=== PATIENT | female | born 1985 | race Caucasian/White ===

== ENCOUNTER 2016-12-22 12:37 | Inpatient (IN) | payer OTHER, MEDICAID ==
[~2016-12-22] VITALS: Ht 165.1 cm; Wt 73.6 kg
[~2016-12-22 12:37] MED LIST: CLOZ100 PO; PREN1TAB80 PO
[2016-12-22 13:11] VITALS: BP 122/81
[2016-12-22] MEDS ORDERED: PREN-147 PO (15:54)
[2016-12-22 16:20] VITALS: BP 141/89
[2016-12-22] MEDS: HALOPERIDOL 5 MG TABLET PO PRN (16:25)
[2016-12-23 05:13] VITALS: BP 116/70
[2016-12-23 06:37] LABS: BASOPHILS % (AUTO) 0.4 % (0.0-2.0); EOSINOPHILS % (AUTO) 0.2 % (1.0-6.0); HEMATOCRIT 37.6 % (36-46); HEMOGLOBIN 12.4 g/dL (12.0-16.0); LYMPHOCYTES # (AUTO) 1.8 K/uL (1.0-4.8); LYMPHOCYTES % (AUTO) 23.3 % (22.0-44.0); MEAN CORPUSCULAR HEMOGLOBIN 27.6 pg (26.0-34.0); MEAN CORPUSCULAR VOLUME 84 fL (80-100); MONOCYTES # (AUTO) 0.5 K/uL (0.1-1.0); MONOCYTES % (AUTO) 6.3 % (2.0-9.0); NEUTROPHILS # (AUTO) 5.4 K/uL (1.8-7.7); NEUTROPHILS % (AUTO) 69.8 % (40.0-70.0); PLATELET COUNT (AUTO) 252 K/uL (150-450); RED BLOOD CELL COUNT(AUTO) 4.49 MIL/uL (4.00-5.20); RED CELL DISTRIBUTION WIDTH 13.7 % (11.5-14.5); WHITE BLOOD COUNT (AUTO) 7.7 K/uL (4.5-11.0)
[2016-12-23 07:12] LABS: ALANINE AMINOTRANSFERASE 34 U/L (12-78); ALBUMIN 2.7 g/dL (3.4-5.0); ANION GAP 9 mmol/L (8-16); ASPARTATE AMINOTRANSFERASE 19 U/L (15-37); BILIRUBIN,TOTAL 0.3 mg/dL (0.1-1.0); CALCIUM, TOTAL 8.6 mg/dL (8.8-10.5); CARBON DIOXIDE 24 mmol/L (22-29); CHLORIDE 103 mmol/L (98-107); CHOL/HDL RATIO 2.5 (3.9-5.7); GLOMERULAR FILTR. RATE CALC > 60 mL/min (>60); POTASSIUM 3.3 mmol/L (3.5-5.1); SODIUM SERUM 136 mmol/L (136-145); THYROID STIMULATING HORMONE 3.18 uIU/mL (0.36-3.74); TOTAL PROTEIN, SERUM 6.6 g/dL (6.4-8.2); UREA NITROGEN, BLOOD 7 mg/dL (7-18)
[2016-12-23 08:46] VITALS: BP 120/82
[2016-12-23] MEDS: HALOPERIDOL 5 MG TABLET PO PRN ×2 (10:00→21:03)
[2016-12-23] MEDS ORDERED: BENZOCAINE/MENTHOL LOZENGE MM PRN (10:30)
[2016-12-23] MEDS ORDERED: LOPERAMIDE HCL 2 MG CAPSULE PO PRN (10:30)
[2016-12-23] MEDS ORDERED: BENZOCAINE/MENTHOL LOZENGE [8 LOZENGES/PACKET] MM PRN (10:30)
[2016-12-23] MEDS ORDERED: ONDANSETRON HCL 4 MG TABLET PO PRN (10:30)
[2016-12-23] MEDS ORDERED: PETROLATUM,WHITE 71 GM JELLY TP PRN (10:30)
[2016-12-23] MEDS ORDERED: CloNIDine HCL 0.1 MG TABLET PO PRN (10:30)
[2016-12-23] MEDS ORDERED: POTASSIUM CHLORIDE 20 MEQ ER TABLET PO ONE (10:30)
[2016-12-23] MEDS ORDERED: BACITRACIN 28.4 GM OINTMENT TP PRN (10:30)
[2016-12-23] MEDS ORDERED: MAG HYDROX/AL HYDROX/SIMETH ES 30 ML SUSPENSION UDCUP PO PRN (10:30)
[2016-12-23] MEDS ORDERED: IBUPROFEN 600 MG TABLET PO PRN (10:30)
[2016-12-23] MEDS ORDERED: MAGNESIUM HYDROXIDE SUSPENSION 30 ML UDCUP PO PRN (10:30)
[2016-12-23] MEDS ORDERED: ALBUTEROL SULFATE HFA 90 MCG/PUFF 8 GM INHALER IH PRN (10:30)
[2016-12-23] MEDS: PRENATAL VIT#96/FERROUS FUM/FA TABLET PO SCH (11:02)
[2016-12-23 17:00] VITALS: BP 102/65
[2016-12-24] MEDS: PRENATAL VIT#96/FERROUS FUM/FA TABLET PO SCH (08:50)
[2016-12-24 08:56] VITALS: BP 106/59
[2016-12-24 16:24] VITALS: BP 109/70
[2016-12-24 23:06] VITALS: BP 123/69
[2016-12-24] MEDS: ACETAMINOPHEN 325 MG TABLET PO PRN (23:07)
[2016-12-25 09:03] VITALS: BP 123/74
[2016-12-25] MEDS: PRENATAL VIT#96/FERROUS FUM/FA TABLET PO SCH (09:15)
[2016-12-25 16:27] VITALS: BP 106/57
[2016-12-25] MEDS: HALOPERIDOL 5 MG TABLET PO PRN (22:17)
[2016-12-26 08:42] VITALS: BP 104/69
[2016-12-26] MEDS: PRENATAL VIT#96/FERROUS FUM/FA TABLET PO SCH (09:12)
[2016-12-26 09:35] VITALS: BP 104/69
[2016-12-26] MEDS: ACETAMINOPHEN 325 MG TABLET PO PRN (09:39)
== END 2016-12-26 14:00 | disposition home or self-care (01) | DRG 781 ==
LOC: B2X 13:27 → 3EI 13:27
PROVIDERS: ADMIT Psychiatry & Neurology Psychiatry; ATTEND Psychiatry & Neurology Psychiatry
DX: O99.342 Other mental disorders complicating pregnancy, second trimester (principal); F20.0 Paranoid schizophrenia; G47.00 Insomnia, unspecified; F41.9 Anxiety disorder, unspecified; E87.6 Hypokalemia; E83.51 Hypocalcemia; O99.282 Endocrine, nutritional and metabolic diseases complicating pregnancy, second trimester; O26.892 Other specified pregnancy related conditions, second trimester; Z91.14 Patient's other noncompliance with medication regimen; Z98.890 Other specified postprocedural states; Z3A.16 16 weeks gestation of pregnancy
CPT/HCPCS: 76811; 84132; 84439; 84443; 86900; 86901; 87340; 87389; J3535

== ENCOUNTER 2017-09-01 16:23 | Inpatient (IN) | payer OTHER, MEDICAID ==
[~2017-09-01] VITALS: Ht 165.1 cm; Wt 75.5 kg
[~2017-09-01 16:23] MED LIST changes: -CLOZ100 PO; +PREN-147 PO; -PREN1TAB80 PO
[2017-09-01] MEDS ORDERED: ZOLPIDEM TARTRATE 10 MG TABLET PO PRN (17:00)
[2017-09-01] MEDS ORDERED: MAG HYDROX/AL HYDROX/SIMETH ES 30 ML SUSPENSION UDCUP PO PRN (17:00)
[2017-09-01] MEDS ORDERED: PROMETHAZINE HCL 25 MG TABLET PO PRN (17:00)
[2017-09-01] MEDS ORDERED: OLANZapine 5 MG RAPDIS TABLET PO PRN (17:00)
[2017-09-01] MEDS ORDERED: LOPERAMIDE HCL 2 MG CAPSULE PO PRN (17:00)
[2017-09-01] MEDS ORDERED: MAGNESIUM HYDROXIDE SUSPENSION 30 ML UDCUP PO PRN (17:00)
[2017-09-01] MEDS ORDERED: ACETAMINOPHEN 325 MG TABLET PO PRN (17:00)
[2017-09-01] MEDS ORDERED: TUBERCULIN, PURIFIED PROTEIN DERIVATIVE 5 TU/0.1 ML SYG ID ONE (17:00)
[2017-09-01] MEDS ORDERED: HydrOXYzine PAMOATE 50 MG CAPSULE PO PRN (17:00)
[2017-09-01] MEDS ORDERED: GuaiFENesin/D-METHORPHAN [SUGAR-FREE] 200-20MG/10 ML SYRUP UDCUP PO PRN (17:00)
[2017-09-01] MEDS: THIAMINE HCL 100 MG TABLET PO SCH (17:35)
[2017-09-01 17:45] VITALS: BP 139/85
[2017-09-01 20:23] VITALS: BP 118/87
[2017-09-01] MEDS: LORazepam 2 MG TABLET PO PRN (20:23)
[2017-09-01] MEDS: OLANZapine 10 MG RAPDIS TABLET PO SCH (20:23)
[2017-09-02 06:46] VITALS: BP 134/75
[2017-09-02 08:22] LABS: BASOPHILS # (AUTO) 0.02 K/uL (0.00-0.20); BASOPHILS % (AUTO) 0.3 % (0.0-2.0); EOSINOPHILS # (AUTO) 0.03 K/uL (0.00-0.70); HEMATOCRIT 38.1 % (36-46); HEMOGLOBIN 11.8 g/dL (12.0-16.0); LYMPHOCYTES # (AUTO) 1.5 K/uL (1.0-4.8); LYMPHOCYTES % (AUTO) 28.3 % (22.0-44.0); MEAN CORPUSCULAR HEMOGLOBIN 21.1 pg (26.0-34.0); MEAN CORPUSCULAR VOLUME 68 fL (80-100); MONOCYTES # (AUTO) 0.4 K/uL (0.1-1.0); MONOCYTES % (AUTO) 7.7 % (2.0-9.0); NEUTROPHILS # (AUTO) 3.4 K/uL (1.8-7.7); NEUTROPHILS % (AUTO) 63.2 % (40.0-70.0); PLATELET COUNT (AUTO) 250 K/uL (150-450); RED BLOOD CELL COUNT(AUTO) 5.59 MIL/uL (4.00-5.20); RED CELL DISTRIBUTION WIDTH 19.6 % (11.5-14.5); WHITE BLOOD COUNT (AUTO) 5.3 K/uL (4.5-11.0)
[2017-09-02 08:36] VITALS: BP 131/90
[2017-09-02] MEDS: THIAMINE HCL 100 MG TABLET PO SCH ×2 (09:04→16:52)
[2017-09-02] MEDS: FLUoxetine HCL 20 MG CAPSULE PO SCH (09:04)
[2017-09-02] MEDS: FOLIC ACID 1 MG TABLET PO SCH (09:04)
[2017-09-02] MEDS: MULTIVITAMINS WITH MINERALS, THERAPEUTIC TABLET PO SCH (09:04)
[2017-09-02 09:30] LABS: ALANINE AMINOTRANSFERASE 57 U/L (12-78); ALBUMIN 3.9 g/dL (3.4-5.0); ANION GAP 8 mmol/L (8-16); ASPARTATE AMINOTRANSFERASE 20 U/L (15-37); BILIRUBIN,TOTAL 0.3 mg/dL (0.1-1.0); CALCIUM, TOTAL 9.1 mg/dL (8.8-10.5); CARBON DIOXIDE 28 mmol/L (22-29); CHLORIDE 105 mmol/L (98-107); CHOL/HDL RATIO 1.9 (3.9-5.7); CREATININE 0.66 mg/dL (0.60-1.30); GLOMERULAR FILTR. RATE CALC > 60 mL/min (>60); POTASSIUM 3.7 mmol/L (3.5-5.1); SODIUM SERUM 141 mmol/L (136-145); THYROID STIMULATING HORMONE 2.43 uIU/mL (0.36-3.74); TOTAL PROTEIN, SERUM 8.1 g/dL (6.4-8.2); UREA NITROGEN, BLOOD 19 mg/dL (7-18)
[2017-09-02 09:34] LABS: HEMOGLOBIN A1C 5.1 % (4.5-6.2)
[2017-09-02 10:02] LABS: RBC MORPHOLOGY COMMENT ABNORMAL RBC MORPH
[2017-09-02] MEDS: LORazepam 2 MG TABLET PO PRN (16:08)
[2017-09-02 16:17] VITALS: BP 127/80
[2017-09-02] MEDS: OLANZapine 10 MG RAPDIS TABLET PO SCH (21:03)
[2017-09-03 00:14] VITALS: BP 126/74
[2017-09-03] MEDS: MULTIVITAMINS WITH MINERALS, THERAPEUTIC TABLET PO SCH (08:17)
[2017-09-03] MEDS: FOLIC ACID 1 MG TABLET PO SCH (08:17)
[2017-09-03] MEDS: FLUoxetine HCL 20 MG CAPSULE PO SCH (08:17)
[2017-09-03] MEDS: THIAMINE HCL 100 MG TABLET PO SCH ×2 (08:17→16:26)
[2017-09-03 16:23] VITALS: BP 121/89
[2017-09-03] MEDS ORDERED: OLAN5TAB30 PO (18:17)
[2017-09-03] MEDS ORDERED: FLUO-191 PO (18:17)
[2017-09-03] MEDS ORDERED: OLANZapine 5 MG RAPDIS TABLET PO SCH (21:00)
[2017-09-04 06:46] VITALS: BP 126/66
[2017-09-04 08:28] VITALS: BP 122/63
[2017-09-04] MEDS: THIAMINE HCL 100 MG TABLET PO SCH (08:33)
[2017-09-04] MEDS: MULTIVITAMINS WITH MINERALS, THERAPEUTIC TABLET PO SCH (08:33)
[2017-09-04] MEDS: FOLIC ACID 1 MG TABLET PO SCH (08:33)
[2017-09-04] MEDS: FLUoxetine HCL 20 MG CAPSULE PO SCH (08:33)
== END 2017-09-04 13:05 | disposition home or self-care (01) | DRG 885 ==
LOC: B2X 17:02
PROVIDERS: ADMIT Psychiatry & Neurology Psychiatry; ATTEND Psychiatry & Neurology Psychiatry
DX: F25.9 Schizoaffective disorder, unspecified (principal); Z91.19 Patient's noncompliance with other medical treatment and regimen; F31.9 Bipolar disorder, unspecified; G47.00 Insomnia, unspecified; Z79.899 Other long term (current) drug therapy; Z72.0 Tobacco use; Z71.6 Tobacco abuse counseling
CPT/HCPCS: 83036; 84439; 84443; 84520; 86592

== ENCOUNTER 2020-01-13 11:03 | Inpatient (IN) | payer OTHER, MEDICAID ==
[~2020-01-13] VITALS: Ht 165.1 cm; Wt 79.3 kg
[2020-01-14 12:24] VITALS: BP 122/78
[2020-01-14] MEDS ORDERED: OLAN7.5T2 PO (12:42)
[2020-01-14] MEDS ORDERED: FLUO-191 PO (12:42)
[2020-01-14] MEDS ORDERED: ZOLPIDEM TARTRATE 10 MG TABLET PO PRN (12:45)
[2020-01-14] MEDS ORDERED: OLANZapine 5 MG RAPDIS TABLET PO PRN (12:45)
[2020-01-14 13:39] VITALS: BP 128/79
[2020-01-14] MEDS ORDERED: LOPERAMIDE HCL 2 MG CAPSULE PO PRN (15:15)
[2020-01-14] MEDS ORDERED: NICOTINE 14 MG/24 HOUR PATCH TD PRN (15:15)
[2020-01-14] MEDS ORDERED: MAGNESIUM HYDROXIDE SUSPENSION 30 ML UDCUP PO PRN (15:15)
[2020-01-14] MEDS ORDERED: ACETAMINOPHEN 325 MG TABLET PO PRN (15:15)
[2020-01-14] MEDS ORDERED: DOCUSATE SODIUM 100 MG CAPSULE PO PRN (15:15)
[2020-01-14] MEDS ORDERED: MAG HYDROX/AL HYDROX/SIMETH ES 30 ML SUSPENSION UDCUP PO PRN (15:15)
[2020-01-14] MEDS ORDERED: ALBUTEROL SULFATE HFA 90 MCG/PUFF 8 GM INHALER IH PRN (15:15)
[2020-01-14] MEDS ORDERED: IBUPROFEN 400 MG TABLET PO PRN (15:15)
[2020-01-14] MEDS ORDERED: PETROLATUM,WHITE 28 GM JELLY TP PRN (15:15)
[2020-01-14] MEDS ORDERED: CloNIDine HCL 0.1 MG TABLET PO PRN (15:15)
[2020-01-14] MEDS ORDERED: GuaiFENesin/D-METHORPHAN [SUGAR-FREE] 200-20MG/10 ML SYRUP UDCUP PO PRN (15:15)
[2020-01-14] MEDS ORDERED: ONDANSETRON HCL 4 MG TABLET PO PRN (15:15)
[2020-01-14 16:19] VITALS: BP_SYST 130; BP_SYST 145; BP_DIAS 75
[2020-01-14] MEDS: LORazepam 2 MG TABLET PO PRN (18:22)
[2020-01-14] MEDS ORDERED: HALOPERIDOL LACTATE 5 MG/ML VIAL ONE (19:05)
[2020-01-14] MEDS ORDERED: DiphenhydrAMINE HCL 50 MG/ML VIAL ONE (19:05)
[2020-01-14] MEDS ORDERED: LORazepam 2 MG/ML VIAL ONE (19:05)
[2020-01-14] MEDS ORDERED: DiphenhydrAMINE HCL 50 MG/ML VIAL IM ONE (19:15)
[2020-01-14] MEDS ORDERED: LORazepam 2 MG/ML VIAL IM ONE (19:15)
[2020-01-14] MEDS ORDERED: HALOPERIDOL LACTATE 5 MG/ML VIAL IM ONE (19:15)
[2020-01-14] MEDS ORDERED: HALOPERIDOL 5 MG TABLET PO PRN (19:15)
[2020-01-15 06:12] VITALS: BP 120/81
[2020-01-15 08:00] VITALS: BP 114/74
[2020-01-15] MEDS: RisperiDONE 3 MG TABLET PO SCH ×2 (08:51→17:01)
[2020-01-15] MEDS: LORazepam 2 MG TABLET PO PRN ×2 (08:51→17:46)
[2020-01-15 09:24] LABS: BASOPHILS % (AUTO) 0.5 % (0.0-2.0); EOSINOPHILS % (AUTO) 0.4 % (1.0-6.0); HEMATOCRIT 39.7 % (36-46); HEMOGLOBIN 12.5 g/dL (12.0-16.0); LYMPHOCYTES # (AUTO) 2.5 K/uL (1.0-4.8); LYMPHOCYTES % (AUTO) 38.6 % (22.0-44.0); MEAN CORPUSCULAR HEMOGLOBIN 22.8 pg (26.0-34.0); MEAN CORPUSCULAR HGB CONC 31.5 G/dL (31.0-37.0); MEAN CORPUSCULAR VOLUME 72 fL (80-100); MONOCYTES # (AUTO) 0.6 K/uL (0.1-1.0); MONOCYTES % (AUTO) 8.9 % (2.0-9.0); NEUTROPHILS # (AUTO) 3.4 K/uL (1.8-7.7); NEUTROPHILS % (AUTO) 51.6 % (40.0-70.0); PLATELET COUNT (AUTO) 244 K/uL (150-450); RED BLOOD CELL COUNT(AUTO) 5.49 MIL/uL (4.00-5.20); RED CELL DISTRIBUTION WIDTH 20.2 % (11.5-14.5)
[2020-01-15 09:38] LABS: HEMOGLOBIN A1C 5.5 % (3.8-5.6)
[2020-01-15 09:39] LABS: ALANINE AMINOTRANSFERASE 30 U/L (12-78); ALBUMIN 3.4 g/dL (3.4-5.0); ALKALINE PHOSPHATASE 60 U/L (46-116); ANION GAP 8 mmol/L (8-16); ASPARTATE AMINOTRANSFERASE 14 U/L (15-37); BILIRUBIN,TOTAL 0.2 mg/dL (0.1-1.0); CARBON DIOXIDE 27 mmol/L (22-29); CHLORIDE 105 mmol/L (98-107); CHOL/HDL RATIO 2.5 (3.9-5.7); CHOLESTEROL 128 mg/dL (131-200); CREATININE 0.63 mg/dL (0.60-1.30); GLOMERULAR FILTR. RATE CALC > 60 mL/min (>60); GLUCOSE,RANDOM 85 mg/dL (70-110); HCG,QUANTITATIVE < 1 mIU/mL (0-6); HDL CHOLESTEROL 52 mg/dL (40-60); LDL CHOL (CALC.) 68 mg/dL (0-130); POTASSIUM 3.9 mmol/L (3.5-5.1); SODIUM SERUM 140 mmol/L (136-145); TOTAL PROTEIN, SERUM 7.4 g/dL (6.4-8.2); TRIGLYCERIDES 42 mg/dL (15-150); UREA NITROGEN, BLOOD 15 mg/dL (7-18)
[2020-01-16 05:34] VITALS: BP 127/72
[2020-01-16] MEDS: RisperiDONE 3 MG TABLET PO SCH ×2 (08:08→16:34)
[2020-01-16 08:37] VITALS: BP 120/60
[2020-01-16] MEDS: LORazepam 2 MG TABLET PO PRN (14:27)
[2020-01-16 16:15] VITALS: BP 120/66
[2020-01-16] MEDS ORDERED: RISP3 PO (20:37)
[2020-01-17 05:11] VITALS: BP 102/62
[2020-01-17 07:58] LABS: APPEARANCE,URINE TURBID (CLEAR); GLUCOSE, URINE (UA) NEGATIVE (NEGATIVE); KETONES,URINE 15 mg/dL (NEGATIVE); LEUKOCYTE ESTERASE ,URINE TRACE (NEGATIVE); NITRATE,URINE NEGATIVE (NEGATIVE); OCCULT BLOOD,URINE NEGATIVE (NEGATIVE); PROTEIN,URINE NEGATIVE (NEGATIVE)
[2020-01-17 08:01] LABS: BILIRUBIN,URINE PRELIM. POSITIVE (NEGATIVE)
[2020-01-17 08:09] LABS: AMPHET/METH SCREEN,URINE NEGATIVE (NEGATIVE); BARBITURATE SCREEN, URINE NEGATIVE (NEGATIVE); BENZODIAZEPINES SCREEN,URINE NEGATIVE (NEGATIVE); CANNABINOID SCREEN,URINE NEGATIVE (NEGATIVE); COCAINE SCREEN,URINE NEGATIVE (NEGATIVE); METHADONE SCREEN, URINE NEGATIVE (NEGATIVE); OPIATE SCREEN,URINE NEGATIVE (NEGATIVE); PHENCYCLIDINE SCREEN,URINE NEGATIVE (NEGATIVE)
[2020-01-17] MEDS: RisperiDONE 3 MG TABLET PO SCH ×2 (08:14→16:44)
[2020-01-17] MEDS: LORazepam 2 MG TABLET PO PRN ×2 (08:14→17:18)
[2020-01-17 08:17] LABS: BACTERIA,URINE Moderate /HPF (None Seen); RBC,URINE None Seen /HPF (0-2); SQUAMOUS EPITHELIAL CELL,UR Few /LPF (None Seen); WBC,URINE 0-2 /HPF (0-5)
[2020-01-17 08:19] LABS: AMORPHOUS SEDIMENT,UR Many /LPF (None Seen)
[2020-01-17 08:35] VITALS: BP 118/72
[2020-01-17 16:16] VITALS: BP 127/70
[2020-01-18 05:00] VITALS: BP 120/64
[2020-01-18 08:38] VITALS: BP 122/77
[2020-01-18] MEDS: RisperiDONE 3 MG TABLET PO SCH ×2 (08:50→16:43)
[2020-01-18] MEDS: LORazepam 2 MG TABLET PO PRN (17:41)
[2020-01-18 18:30] VITALS: BP 114/81
[2020-01-19 05:18] VITALS: BP 123/62
[2020-01-19 08:14] VITALS: BP 129/76
[2020-01-19] MEDS ORDERED: RisperiDONE 3 MG TABLET PO SCH (09:00)
[2020-01-19] MEDS: LORazepam 2 MG TABLET PO PRN (09:10)
[2020-01-19] MEDS ORDERED: RISP4 PO (12:15)
[2020-01-19] MEDS ORDERED: RISP3 PO (12:15)
[2020-01-19] MEDS ORDERED: RisperiDONE 4 MG TABLET PO SCH (21:00)
== END 2020-01-19 13:43 | disposition home or self-care (01) | DRG 885 ==
LOC: B2S 01-14 12:31 → B3A 01-14 15:41
PROVIDERS: ADMIT Psychiatry & Neurology Psychiatry; ATTEND Psychiatry & Neurology Psychiatry
DX: F20.0 Paranoid schizophrenia (principal); F41.9 Anxiety disorder, unspecified; F17.200 Nicotine dependence, unspecified, uncomplicated; K59.00 Constipation, unspecified
CPT/HCPCS: 80307; 83036; 87086; J1200; J1630; J2060

== ENCOUNTER 2020-01-13 11:48 | Emergency (ER) | payer OTHER ==
[~2020-01-13] VITALS: Ht 165.1 cm; Wt 81.8 kg
[~2020-01-13 11:48] MED LIST changes: +FLUO-191 PO; +OLAN5TAB30 PO; -PREN-147 PO
[2020-01-13 13:35] LABS: AMPHET/METH SCREEN,URINE NEGATIVE (NEGATIVE); BARBITURATE SCREEN, URINE NEGATIVE (NEGATIVE); BENZODIAZEPINES SCREEN,URINE NEGATIVE (NEGATIVE); CANNABINOID SCREEN,URINE NEGATIVE (NEGATIVE); COCAINE SCREEN,URINE NEGATIVE (NEGATIVE); METHADONE SCREEN, URINE NEGATIVE (NEGATIVE); OPIATE SCREEN,URINE NEGATIVE (NEGATIVE)
[2020-01-13 13:36] LABS: PHENCYCLIDINE SCREEN,URINE NEGATIVE (NEGATIVE)
[2020-01-13 13:43] LABS: ANION GAP 9 mmol/L (8-16); CALCIUM, TOTAL 8.9 mg/dL (8.8-10.5); CARBON DIOXIDE 26 mmol/L (22-29); CHLORIDE 104 mmol/L (98-107); CREATININE 0.42 mg/dL (0.60-1.30); GLOMERULAR FILTR. RATE CALC > 60 mL/min (>60); GLUCOSE,RANDOM 107 mg/dL (70-110); POTASSIUM 3.8 mmol/L (3.5-5.1); SODIUM SERUM 139 mmol/L (136-145); UREA NITROGEN, BLOOD 10 mg/dL (7-18)
[2020-01-13 13:48] LABS: BASOPHILS % (AUTO) 0.2 % (0.0-2.0); EOSINOPHILS % (AUTO) 0 % (1.0-6.0); HEMATOCRIT 38.3 % (36-46); HEMOGLOBIN 12.2 g/dL (12.0-16.0); LYMPHOCYTES # (AUTO) 1.4 K/uL (1.0-4.8); MEAN CORPUSCULAR HGB CONC 31.9 G/dL (31.0-37.0); MEAN CORPUSCULAR VOLUME 72 fL (80-100); MONOCYTES # (AUTO) 0.4 K/uL (0.1-1.0); MONOCYTES % (AUTO) 6.2 % (2.0-9.0); NEUTROPHILS # (AUTO) 5.1 K/uL (1.8-7.7); NEUTROPHILS % (AUTO) 73.6 % (40.0-70.0); PLATELET COUNT (AUTO) 277 K/uL (150-450); RED CELL DISTRIBUTION WIDTH 19.7 % (11.5-14.5)
[2020-01-13 13:49] LABS: ALANINE AMINOTRANSFERASE 29 U/L (12-78); ALBUMIN 3.7 g/dL (3.4-5.0); ALKALINE PHOSPHATASE 66 U/L (46-116); ASPARTATE AMINOTRANSFERASE 19 U/L (15-37); BILIRUBIN,TOTAL 0.2 mg/dL (0.1-1.0); TOTAL PROTEIN, SERUM 7.8 g/dL (6.4-8.2)
[2020-01-13 16:12] LABS: APPEARANCE,URINE CLOUDY (CLEAR); BILIRUBIN,URINE NEGATIVE (NEGATIVE); GLUCOSE, URINE (UA) NEGATIVE (NEGATIVE); KETONES,URINE >=80 mg/dL (NEGATIVE); LEUKOCYTE ESTERASE ,URINE NEGATIVE (NEGATIVE); NITRATE,URINE NEGATIVE (NEGATIVE); OCCULT BLOOD,URINE NEGATIVE (NEGATIVE); PROTEIN,URINE NEGATIVE (NEGATIVE); UROBILINOGEN,URINE 0.2 mg/dL (<=1.0)
[2020-01-13 16:33] VITALS: BP 132/72
[2020-01-13 16:37] LABS: SQUAMOUS EPITHELIAL CELL,UR Moderate /LPF (None Seen)
[2020-01-13 16:39] LABS: RBC,URINE 0-2 /HPF (0-2); WBC,URINE 0-2 /HPF (0-5)
[2020-01-13 16:40] LABS: BACTERIA,URINE Moderate /HPF (None Seen); MUCUS,URINE Moderate LPF (None Seen)
[2020-01-14] MEDS ORDERED: FLUO-191 PO (12:42)
[2020-01-14] MEDS ORDERED: OLAN7.5T2 PO (12:42)
== END 2020-01-13 17:23 | disposition home or self-care (01) ==
LOC: EMS 12:27
DX: N76.0 Acute vaginitis (principal); B96.89 Other specified bacterial agents as the cause of diseases classified elsewhere; F41.9 Anxiety disorder, unspecified; F32.9 Major depressive disorder, single episode, unspecified; G47.00 Insomnia, unspecified
CPT/HCPCS: 36415; 80053; 80307; 81001; 85025; 87086; 87210; 87491; 87591; 99285; G0480

== ENCOUNTER 2020-12-12 16:06 | Inpatient (IN) | payer OTHER, MEDICAID ==
[~2020-12-12] VITALS: Ht 165.1 cm; Wt 87.8 kg
[~2020-12-12 16:06] MED LIST changes: -FLUO-191 PO; -OLAN5TAB30 PO; +RISP3TAB35 PO; +RISP4TAB73 PO
[2020-12-12 18:56] LABS: COVID AG,FIA SOURCE NASAL SWAB
[2020-12-12 21:19] VITALS: BP 134/89
[2020-12-12] MEDS: ZOLPIDEM TARTRATE 10 MG TABLET PO PRN (21:38)
[2020-12-12] MEDS: LORazepam 2 MG TABLET PO PRN (21:38)
[2020-12-12] MEDS: HALOPERIDOL 5 MG TABLET PO PRN (21:38)
[2020-12-12] MEDS ORDERED: ACETAMINOPHEN 325 MG TABLET PO PRN (22:15)
[2020-12-13 01:29] VITALS: BP 122/82
[2020-12-13] MEDS ORDERED: PETROLATUM,WHITE 28 GM JELLY TP PRN (06:45)
[2020-12-13] MEDS ORDERED: BENZOCAINE/MENTHOL LOZENGE PO PRN (06:45)
[2020-12-13] MEDS ORDERED: MAG HYDROX/AL HYDROX/SIMETH ES 30 ML SUSPENSION UDCUP PO PRN (06:45)
[2020-12-13] MEDS ORDERED: LOPERAMIDE HCL 2 MG CAPSULE PO PRN (06:45)
[2020-12-13] MEDS ORDERED: DOCUSATE SODIUM 100 MG CAPSULE PO PRN (06:45)
[2020-12-13] MEDS ORDERED: ALBUTEROL SULFATE HFA 90 MCG/PUFF 8 GM INHALER IH PRN (06:45)
[2020-12-13] MEDS ORDERED: CloNIDine HCL 0.1 MG TABLET PO PRN (06:45)
[2020-12-13] MEDS ORDERED: BACITRACIN 28 GM OINTMENT TP PRN (06:45)
[2020-12-13] MEDS ORDERED: OMEPRAZOLE 20 MG CAPSULE PO PRN (06:45)
[2020-12-13] MEDS ORDERED: ONDANSETRON HCL 4 MG TABLET PO PRN (06:45)
[2020-12-13] MEDS ORDERED: MAGNESIUM HYDROXIDE SUSPENSION 30 ML UDCUP PO PRN (06:45)
[2020-12-13] MEDS: IBUPROFEN 600 MG TABLET PO PRN ×2 (08:14→18:28)
[2020-12-13] MEDS: LORazepam 2 MG TABLET PO PRN ×2 (08:14→18:29)
[2020-12-13] MEDS: RisperiDONE 3 MG TABLET PO SCH (08:33)
[2020-12-13 10:40] VITALS: BP 153/93
[2020-12-13 14:53] VITALS: BP 140/88
[2020-12-13 16:13] VITALS: BP 155/97
[2020-12-13] MEDS: RisperiDONE 4 MG TABLET PO SCH (20:41)
[2020-12-13] MEDS: ZOLPIDEM TARTRATE 10 MG TABLET PO PRN (20:50)
[2020-12-14] VITALS (8 sets, daily range): BP systolic 126–161; BP diastolic 80–104
[2020-12-14] MEDS: RisperiDONE 3 MG TABLET PO SCH (08:22)
[2020-12-14] MEDS: IBUPROFEN 600 MG TABLET PO PRN ×2 (08:22→16:13)
[2020-12-14] MEDS: LORazepam 2 MG TABLET PO PRN ×2 (08:22→19:45)
[2020-12-14 08:57] LABS: BASOPHILS % (AUTO) 0.4 % (0.0-2.0); EOSINOPHILS % (AUTO) 1.5 % (1.0-6.0); HEMATOCRIT 31.5 % (36-46); HEMOGLOBIN 9.6 g/dL (12.0-16.0); LYMPHOCYTES # (AUTO) 1.4 K/uL (1.0-4.8); LYMPHOCYTES % (AUTO) 30.8 % (22.0-44.0); MEAN CORPUSCULAR HEMOGLOBIN 21.7 pg (26.0-34.0); MEAN CORPUSCULAR HGB CONC 30.6 G/dL (31.0-37.0); MEAN CORPUSCULAR VOLUME 71 fL (80-100); MONOCYTES # (AUTO) 0.3 K/uL (0.1-1.0); MONOCYTES % (AUTO) 5.9 % (2.0-9.0); NEUTROPHILS # (AUTO) 2.8 K/uL (1.8-7.7); NEUTROPHILS % (AUTO) 61.4 % (40.0-70.0); PLATELET COUNT (AUTO) 269 K/uL (150-450); RED BLOOD CELL COUNT(AUTO) 4.44 MIL/uL (4.00-5.20)
[2020-12-14 09:12] LABS: HEMOGLOBIN A1C 4.8 % (3.8-5.6)
[2020-12-14 09:39] LABS: ALANINE AMINOTRANSFERASE 39 U/L (12-78); ALBUMIN 2.9 g/dL (3.4-5.0); ALKALINE PHOSPHATASE 87 U/L (46-116); ANION GAP 8 mmol/L (8-16); ASPARTATE AMINOTRANSFERASE 20 U/L (15-37); BILIRUBIN,TOTAL 0.3 mg/dL (0.1-1.0); CALCIUM, TOTAL 8.1 mg/dL (8.8-10.5); CARBON DIOXIDE 25 mmol/L (22-29); CHLORIDE 105 mmol/L (98-107); CHOL/HDL RATIO 2.5 (3.9-5.7); CHOLESTEROL 201 mg/dL (131-200); CREATININE 0.62 mg/dL (0.60-1.30); FREE T4 (FREE THYROXINE) 1.35 ng/dL (0.76-1.46); GLOMERULAR FILTR. RATE CALC > 60 mL/min (>60); GLUCOSE,RANDOM 103 mg/dL (70-110); HDL CHOLESTEROL 80 mg/dL (40-60); LDL CHOL (CALC.) 97 mg/dL (0-130); SODIUM SERUM 138 mmol/L (136-145); THYROID STIMULATING HORMONE 1.07 uIU/mL (0.36-3.74); TOTAL PROTEIN, SERUM 6.5 g/dL (6.4-8.2); TRIGLYCERIDES 120 mg/dL (15-150); UREA NITROGEN, BLOOD 8 mg/dL (7-18)
[2020-12-14] MEDS: ACETAMINOPHEN 325 MG TABLET PO PRN (19:45)
[2020-12-14] MEDS: RisperiDONE 4 MG TABLET PO SCH (20:09)
[2020-12-15 00:42] VITALS: BP 124/81
[2020-12-15] MEDS ORDERED: POTASSIUM CHLORIDE 20 MEQ ER TABLET PO ONE (01:15)
[2020-12-15] MEDS: LORazepam 2 MG TABLET PO PRN ×2 (08:12→14:48)
[2020-12-15] MEDS: RisperiDONE 3 MG TABLET PO SCH (08:12)
[2020-12-15] MEDS: HALOPERIDOL 5 MG TABLET PO PRN (08:16)
[2020-12-15 08:21] VITALS: BP 139/92
[2020-12-15 08:34] VITALS: BP 139/92
[2020-12-15] MEDS: LISINOPRIL 10 MG TABLET PO SCH (08:34)
[2020-12-15] MEDS: ACETAMINOPHEN 325 MG TABLET PO PRN (08:34)
[2020-12-15 16:12] VITALS: BP 146/98
[2020-12-15] MEDS: ZOLPIDEM TARTRATE 10 MG TABLET PO PRN (19:51)
[2020-12-15] MEDS: RisperiDONE 4 MG TABLET PO SCH (19:51)
[2020-12-16 00:21] VITALS: BP 132/87
[2020-12-16 08:09] VITALS: BP 150/97
[2020-12-16] MEDS: LISINOPRIL 10 MG TABLET PO SCH (08:23)
[2020-12-16] MEDS: LORazepam 2 MG TABLET PO PRN (08:23)
[2020-12-16] MEDS: RisperiDONE 3 MG TABLET PO SCH (08:23)
[2020-12-16] MEDS ORDERED: BUSP10TA23 PO (09:11)
== END 2020-12-16 11:30 | disposition home or self-care (01) | DRG 885 ==
LOC: B3A 19:40
PROVIDERS: ADMIT Psychiatry & Neurology Psychiatry; ATTEND Psychiatry & Neurology Psychiatry
DX: F20.0 Paranoid schizophrenia (principal); R45.851 Suicidal ideations; F41.9 Anxiety disorder, unspecified; G47.00 Insomnia, unspecified; Z20.822 Contact with and (suspected) exposure to COVID-19; Z79.899 Other long term (current) drug therapy; K59.00 Constipation, unspecified
CPT/HCPCS: 83036; 84132; 84439; 84443; 86592; 87426